=== PATIENT | female | born 1990 | race Caucasian/White ===

== ENCOUNTER 2016-11-13 11:21 | Inpatient (IN) | payer OTHER ==
[2016-11-13] VITALS (16 sets, daily range): BP systolic 106–147; BP diastolic 68–89
[~2016-11-13] VITALS: Ht 160 cm; Wt 86.1 kg
[2016-11-13 12:52] LABS: EOSINOPHIL (%) 0.2 % (0-5); HEMATOCRIT 37.1 % (36.0-46.0); IMMATURE GRANULOCYTE (%) 0.6 % (0.0-0.7); IMMATURE GRANULOCYTE COUNT 0.1 K/uL; INSTRUMENT ABS NEUTROPHIL CT 7.6 K/uL; LYMPHOCYTE COUNT 1.2 K/uL (1.0-2.8); MCH 30.3 PG (29.0-34.0); MCHC 34.2 G/DL (30.0-36.0); MCV 88.5 FL (83-99); MEAN PLAT.VOLUME 10.4 uM^3 (9.5-12.4); MONOCYTE (%) 5.4 % (3-12); MONOCYTE COUNT 0.5 K/uL (0-0.8); NEUTROPHIL (%) 81.2 % (45-76); NEUTROPHIL COUNT 7.6 K/uL (1.8-6.4); PLATELET COUNT 166 K/uL (156-360); RBC DIS.WIDTH-CV 12.8 % (11.8-14.6); RBC DIS.WIDTH-SD 41.5 % (39-53); RED BLOOD COUNT 4.19 M/uL (3.80-5.20); WHITE BLOOD COUNT 9.4 K/uL (4.1-10.2)
[2016-11-13 13:01] LABS: CHLORIDE 106 mEq/L (99-109); POTASSIUM 3.9 mEq/L (3.7-5.4); SODIUM 135 mEq/L (136-147)
[2016-11-13 13:03] LABS: GLUCOSE 94 mg/dL (70-99)
[2016-11-13 13:04] LABS: ANION GAP 9 MEQ/L (2-14)
[2016-11-13 13:05] LABS: TOTAL BILIRUBIN 0.3 mg/dL (0.0-1.0)
[2016-11-13 13:07] LABS: ALKALINE PHOSPHATASE 149 IU/L (3-129); GFR ESTIMATE (CALCULATED) > 59 mL/min/
[2016-11-13 13:08] LABS: UREA NITROGEN (BUN) 6 mg/dL (9-23)
[2016-11-13 13:10] LABS: URIC ACID 5.4 mg/dL (3.1-9.2)
[2016-11-13] MEDS ORDERED: ZANTAC75 M1 PO (13:17)
[2016-11-13] MEDS ORDERED: PRENATAL TABLE1 EAC3 PO (13:17)
[2016-11-13] MEDS ORDERED: ZYRTEC10 M3 PO (13:17)
[2016-11-13 13:39] LABS: LACTATE DEHYDROGENASE 160 IU/L (20-246)
[2016-11-14] VITALS (13 sets, daily range): BP systolic 107–139; BP diastolic 54–86
[2016-11-15 07:46] LABS: EOSINOPHIL (%) 0.5 % (0-5); EOSINOPHIL COUNT 0.1 K/uL (0-0.3); HEMATOCRIT 27.8 % (36.0-46.0); IMMATURE GRANULOCYTE (%) 0.5 % (0.0-0.7); IMMATURE GRANULOCYTE COUNT 0.1 K/uL; INSTRUMENT ABS NEUTROPHIL CT 7.6 K/uL; LYMPHOCYTE COUNT 1.6 K/uL (1.0-2.8); MCH 31.6 PG (29.0-34.0); MCHC 34.5 G/DL (30.0-36.0); MCV 91.4 FL (83-99); MEAN PLAT.VOLUME 10.2 uM^3 (9.5-12.4); MONOCYTE (%) 7.4 % (3-12); MONOCYTE COUNT 0.7 K/uL (0-0.8); NEUTROPHIL (%) 75.8 % (45-76); NEUTROPHIL COUNT 7.6 K/uL (1.8-6.4); PLATELET COUNT 128 K/uL (156-360); RBC DIS.WIDTH-CV 13.4 % (11.8-14.6); RBC DIS.WIDTH-SD 44.5 % (39-53)
[2016-11-15 07:47] LABS: RED BLOOD COUNT 3.04 M/uL (3.80-5.20)
[2016-11-15 07:59] VITALS: BP 109/76
[2016-11-15 16:50] VITALS: BP 120/78
[2016-11-15 22:35] VITALS: BP 148/84
[2016-11-16 07:36] VITALS: BP 119/76
[2016-11-16] MEDS ORDERED: IBUPROFEN800 MG PO (11:28)
[2016-11-16] MEDS ORDERED: FE C PLUS TABL1 EACH PO (11:29)
== END 2016-11-16 14:15 | disposition home or self-care (01) | DRG 775 ==
LOC: LDRP-OP 11:21 → 2WEST 11:22 → LDRP-OP 11-14 10:00 → 2WEST 11-16 14:15 → LDRP-OP 12-08 14:05
PROVIDERS: Advanced Practice Midwife
PROC: 10E0XZZ Delivery of Products of Conception, External Approach (ICD-10-PCS; principal; 2016-11-13)
PROC: 0KQM0ZZ Repair Perineum Muscle, Open Approach (ICD-10-PCS; principal; 2016-11-13)
PROC: 00HU33Z Insertion of Infusion Device into Spinal Canal, Percutaneous Approach (ICD-10-PCS; principal; 2016-11-13)
PROC: 3E0R3CZ (ICD-10-PCS; principal; 2016-11-13)
DX: O70.1 Second degree perineal laceration during delivery (principal); O77.0 Labor and delivery complicated by meconium in amniotic fluid; O99.02 Anemia complicating childbirth; O69.1XX0 Labor and delivery complicated by cord around neck, with compression, not applicable or unspecified; D62 Acute posthemorrhagic anemia; Z3A.40 40 weeks gestation of pregnancy; Z37.0 Single live birth
CPT/HCPCS: 80053; 81003; 82570; 83615; 84156; 84550; 85025; C1755; G0378; J3010; J7120

== ENCOUNTER 2016-11-19 15:00 | Emergency (ER) | payer OTHER ==
[~2016-11-19] VITALS: Ht 160 cm; Wt 76.7 kg
[~2016-11-19 15:00] MED LIST: FE C PLUS TABL1 EACH PO; IBUPROFEN800 MG PO; PRENATAL TABLE1 EAC3 PO; ZANTAC75 M1 PO; ZYRTEC10 M3 PO
[2016-11-19 15:48] LABS: HEMATOCRIT 33.3 % (36.0-46.0); MCH 30.2 PG (29.0-34.0); MCHC 33.9 G/DL (30.0-36.0); MEAN PLAT.VOLUME 9.5 uM^3 (9.5-12.4); PLATELET COUNT 214 K/uL (156-360); RBC DIS.WIDTH-CV 12.7 % (11.8-14.6); RBC DIS.WIDTH-SD 41.1 % (39-53); RED BLOOD COUNT 3.74 M/uL (3.80-5.20); WHITE BLOOD COUNT 7.9 K/uL (4.1-10.2)
[2016-11-19 15:54] LABS: CHLORIDE 109 mEq/L (99-109); POTASSIUM 3.7 mEq/L (3.7-5.4)
[2016-11-19 15:55] LABS: GLUCOSE 95 mg/dL (70-99)
[2016-11-19 15:57] LABS: ANION GAP 12 MEQ/L (2-14); SODIUM 143 mEq/L (136-147)
[2016-11-19 15:59] LABS: GFR ESTIMATE (CALCULATED) > 59 mL/min/
[2016-11-19 16:00] LABS: UREA NITROGEN (BUN) 6 mg/dL (9-23)
[2016-11-19 17:27] VITALS: BP 168/106
== END 2016-11-19 17:29 | disposition home or self-care (01) ==
LOC: EME 15:00
PROVIDERS: Nurse Practitioner Family
DX: O9A.23 Injury, poisoning and certain other consequences of external causes complicating the puerperium (principal); S39.012A Strain of muscle, fascia and tendon of lower back, initial encounter; X50.9XXA Other and unspecified overexertion or strenuous movements or postures, initial encounter; O12.05 Gestational edema, complicating the puerperium; H53.8 Other visual disturbances
CPT/HCPCS: 70450; 80048; 85027; 93971; 99281; 99284

== ENCOUNTER → 2016-11-23 | Outpatient (CLI) | payer OTHER | END | disposition home or self-care (01) | LOC: LAC 13:42 | DX: O92.03 Retracted nipple associated with lactation (principal); O92.79 Other disorders of lactation | CPT/HCPCS: G0463 ==